=== PATIENT | male | born 1985 | race Caucasian/White ===

== ENCOUNTER 2019-04-29 06:56 | Outpatient (CLI) ==
--- NOTE | 2019-04-29 10:24 | CT ---
EXAM: CTA of the chest. HISTORY: Dilated aortic root TECHNIQUE: Multi-slice transaxial helical images of the chest are acquired following the administrat ion of intravenous contrast according to a standard angiogram protocol. Coronal and sagittal MIP vibha ges as well as 3-D volume rendered images are recreated from the source data. COMPARISON: 01/29/2016, 06/13/2013 FINDINGS: VASCULAR: Motion artifact degrades evaluation of the aortic root precluding accurate measurement. The ascendin g aorta measures up to 2.4 cm in diameter. Normal course and caliber of the aortic arch and descending aorta. No aortic dissection or evidence of flow-limiting stenosis. Normal heart size. No evidence of pulmonary lesion. NONVASCULAR: Normal thyroid. Similar subtle soft tissue density in the prevascular space of the mediastinum, like ly representing residual thymus. No pathologically enlarged lymph nodes. Clear lungs. No pneumotho rax or pleural effusion. Incidental small pleural-based left lower lobe 5mm nodule versus focal atel ectasis (axial 61), which does not require follow-up for patient's age. No other pulmonary nodules. No acute findings in the upper abdomen. No acute osseous abnormality. No aggressive osseous lesion. IMPRESSION: Limited evaluation of the aortic root secondary to motion artifact. Remaining aorta is normal in diam eter without evidence of dissection or flow-limiting stenosis.
--- NOTE | 2019-04-29 11:35 | ECHO2D ---
Date of Exam: 04/29/19 Ordering Physician: DR. JAEL RAMIREZ Room #: OP Reason for Echo: DILATED AORTIC ROOT M-Mode Normal Adult Results LV Dimensions Normal Adult Results AoV Opening excursions >1.6 >1.6 LVEDD-base- 3.5-5.8 5.0 Ao root dimensions 2.0-3.7 3.8 LVESD-base- 3.1-4.6 L. Atrium dimensions 1.9-3.8 3.7 Post. Wall thickness 0.8-1.1 1.1 IV septum (thickness) 0.7-1.2 1.0 Post. Wall excursion 0.72-1.3 NORMAL Septal motion NORMAL Systolic motion R. Ventricular cavity 1.5-2.0 NORMAL LVEF 60% 52% Paradoxical septal wall motion NORMAL 2-D : 2-D M Mode Echocardiogram was performed using apical four chamber and left parasternal long and short axis views. Mitral, tricuspid and aortic valves appear to be normal. Contractility of the left ventricle seems to be normal, so is the cavity size. Left atrial cavity size and aortic root appear to be normal. There is no pericardial effusion. There is no thrombus noted in the left ventricular or left aortic cavity. No mitral valve prolapse noted. M-MODE: MV: NORMAL AV: NORMAL TV: NORMAL PV: CHAMBER SIZE: NORMAL WALL MOTION: NORMAL PERICARDIUM: NORMAL INTERPRETATION: 1. NORMAL 2 "D" "M" MODE ECHO MTDD
== END 2019-04-29 06:57 | disposition home or self-care (01) ==
LOC: CAR 06:56
PROVIDERS: ATTEND Internal Medicine
DX: R07.9 Chest pain, unspecified (principal); Q87.410 Marfan syndrome with aortic dilation